=== PATIENT | male | born 1950 | race Caucasian/White ===

== ENCOUNTER → 2017-01-29 | Outpatient (CLI) | payer OTHER | LOC: FIMAGING 10:31 | PROVIDERS: ATTEND Specialist | DX: N20.0 Calculus of kidney (principal); R93.422 Abnormal radiologic findings on diagnostic imaging of left kidney ==

== ENCOUNTER 2017-04-01 07:43 | Day surgery (SDC) | payer OTHER ==
[2017-04-01] MEDS ORDERED: LIDOCAINE 1% 300 MG/30 ML SDV SC ONE (08:15)
--- NOTE | 2017-04-01 09:24 | SUROPNOTE ---
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 The first, second, and third left intercostal space were prepped. Lidocaine was used for local anesthetic. A skin incision was made and the provided blade was used for proper width. Minor bleeding was noted ( patient on coumadin). The delivery rail was used to insert the LINQ. No complications were noted. Three viola were used to close the incision. LINQ SN: [id number] Three viola for closure. A 4X4 and tegaderm was used to cover the incision. Patient did well and has follow up appointment in one week.
== END 2017-04-01 09:30 | disposition home or self-care (01) ==
LOC: FCATH 07:43
PROVIDERS: ATTEND Internal Medicine Cardiovascular Disease
PROC: 0JH60PZ Insertion of Cardiac Rhythm Related Device into Chest Subcutaneous Tissue and Fascia, Open Approach (ICD-10-PCS; principal; 2017-04-01)
DX: I10 Essential (primary) hypertension (principal); I63.9 Cerebral infarction, unspecified; Z79.01 Long term (current) use of anticoagulants
CPT/HCPCS: C1764

== ENCOUNTER → 2017-06-18 | Outpatient (CLI) | payer OTHER ==
--- NOTE | 2017-06-18 23:57 | CPR ---
[f rep st] NONINVASIVE CARDIAC PROCEDURE REPORT PROCEDURE: Exercise treadmill myocardial perfusion imaging study. SUPERVISING [employer] SOCIAL WORKER: Dr. Norah Steele. INDICATION FOR EXERCISE TREADMILL MYOCARDIAL PERFUSION IMAGING STUDY: Patient recently noted to have wide complex tachycardic arrhythmia. Evaluated for possible ischemia. PRE: After obtaining informed consent, the patient denies any chest pain or symptoms suggestive of i schemia, the patient was placed on electrocardiogram. Initial EKG showing sinus bradycardia, ventric ular rate at 55 beats per minute, nonspecific T-wave abnormalities noted in inferior lateral leads. The patient's initial blood pressure of 138/94, saturation 94% on room air. Patient denies of any ch est pain, shortness of breath, or symptoms suggestive of ischemia. EXERCISE STRESS: The patient was placed on treadmill, following standard William protocol with the js bailey findings: 1. Patient exercised for 8 minutes and 30 seconds. 2. 9.8 METS. 3. The patient attained a heart rate of 147 beats per minute, which was 97 MPHR. 4. The patient reporting no chest pain or symptoms of ischemia throughout testing. 5. Patient was noted to have [address] depression at peak exercise, equivocal for ischem ia. 6. Patient was noted to have rare PACs and rare PVCs during stress, no other malignant arrhythmias n oted. 7. SpO2 greater than 90% throughout testing. 8. BP variations: At rest 134/94, peak 190/80. 9. Test was stopped due to maximum effort. 10. Sharp treadmill score of -2, placing him at intermediate cardiovascular risk. RECOVERY: Patient recovered for 5 minutes post testing with ST segments returning back to baseline. He continued to report no chest pain or shortness of breath, no arrhythmias noted. Final blood pres sure after 5 minutes recovery was 160/70. IMPRESSION: A 67-year-old male who had recently seen Electrophysiology Services, noted to have wide, tachycardic, nonsustained rhythm, denying any chest pressure or pain, undergoing exercise treadmill myocardial perfusion imaging study for ischemia. The patient noted to have [address] dep ression in inferolateral leads, equivocal for ischemia, Sharp treadmill score of negative 2 for interm ittent cardiovascular risk. Patient is going to be further evaluated by [facility] imaging. Currently, he is pain-free, and is taken down to Nuclear Medicine for post-stress imaging. Results of the exercise treadmill stress test called to [facility]rophysiology Services. /[id number]/MODL
== END ==
LOC: FIMAGING 13:45
PROVIDERS: ATTEND Internal Medicine Cardiovascular Disease
PROC: C22G1ZZ Tomographic (Tomo) Nuclear Medicine Imaging of Myocardium using Technetium 99m (Tc-99m) (ICD-10-PCS; principal; 2017-06-18)
PROC: 4A12XM4 Monitoring of Cardiac Stress, External Approach (ICD-10-PCS; principal; 2017-06-18)
DX: I49.9 Cardiac arrhythmia, unspecified (principal)
CPT/HCPCS: 78452; 93017; A9500

== ENCOUNTER 2017-07-19 07:38 | Day surgery (SDC) | payer OTHER ==
[2017-07-19] MEDS ORDERED: DIAZEPAM 5 MG TAB PO ONE (07:40)
[2017-07-19] MEDS ORDERED: ASPIRIN EC 325 MG TAB PO ONE ×2 (07:40→08:07)
[2017-07-19] MEDS ORDERED: diphenhydrAMINE 25 MG CAP PO ONE ×2 (07:40→08:07)
[2017-07-19] MEDS ORDERED: NS 1,000 ML IV ONE (07:40)
[2017-07-19] MEDS ORDERED: FAMOTIDINE 20 MG TAB PO ONE (07:40)
[2017-07-19] MEDS ORDERED: FAMOTIDINE 20 MG TAB ONE (08:07)
[2017-07-19] MEDS ORDERED: DIAZEPAM 5 MG TAB ONE (08:07)
--- NOTE | 2017-07-19 08:07 | CPEKG ---
Heart Rate: 51 RR Interval: 1176 P-R Interval: 156 QRSD Interval: 98 QT Interval: 440 QTC Interval: 406 P Clinton: 62 QRS Clinton: 57 T Wave Clinton: 19 EKG Severity - NORMAL ECG - EKG Impression: SINUS RHYTHM Electronically Signed By: Austyn Sterling 19-Jul-2017 12:06:10
[2017-07-19 08:23] LABS: % IMMATURE GRANULYOCYTES 0.6 % (0.0-1.1); ABSOLUTE IMMATURE GRANULOCYTES 0.04 10^3/uL (0.00-0.10); ADD DIFF? NO; ADD MORPH? NO; ADD SCAN? NO; ATYPICAL LYMPHOCYTE FLAG 0 (0-99); FRAGMENT RBC FLAG 0 (0-99); HEMATOCRIT 44.7 % (40.0-51.0); HEMOGLOBIN 15.8 g/dL (13.7-17.5); LEFT SHIFT FLG 0 (0-99); LIPEMIA HEMOLYSIS FLAG 90 (0-99); MEAN CELL HEMOGLOBIN 31.2 pg (27.9-34.1); MEAN CELL HEMOGLOBIN CONCENTR. 35.3 g/dL (32.4-36.7); MEAN CELL VOLUME 88.3 fL (81.5-99.8); MEAN PLATELET VOLUME 10.1 fL (8.7-11.7); PLATELET CLUMPS FLAG 0 (0-99); PLATELET COUNT 195 10^3/uL (150-400); RED BLOOD CELL COUNT 5.06 10^6/uL (4.40-6.38); RED CELL DISTRIBUTION WIDTH 12.8 % (11.5-15.2)
[2017-07-19 08:31] LABS: INR 1.19 (0.83-1.16); PROTIME(PATIENT) 15.1 SEC (12.0-15.0)
[2017-07-19 08:39] LABS: ANION GAP 10 mEq/L (8-16); CALCIUM 9.4 mg/dL (8.5-10.4); CARBON DIOXIDE 28 mEq/l (22-31); CHLORIDE 102 mEq/L (97-110); CHOLESTEROL 110 mg/dL (140-220); CHOLESTEROL/HDL RATIO 2.75 RATIO (1.00-4.97); GLOMERULAR FILTRATION RATE > 60; GLUCOSE 105 mg/dL (70-100); HIGH DENSITY LIPOPROTEIN 40 mg/dL (40-65); LDL/HDL RATIO 1.45 RATIO (1.00-3.64); LOW DENSITY LIPOPROTEIN 58 mg/dL (80-100); MAGNESIUM 1.7 mg/dL (1.6-2.3); NON-HIGH DENSITY LIPOPROTEIN 70 mg/dL (90-129); POTASSIUM 3.9 mEq/L (3.5-5.2); SODIUM 140 mEq/L (134-144); TRIGLYCERIDE 64 mg/dL (40-150); VERY LOW DENSITY LIPOPROTEINS 12 mg/dL (8-25)
[2017-07-19] MEDS ORDERED: LIDOCAINE 1% 300 MG/30 ML SDV ONE (08:46)
[2017-07-19] MEDS ORDERED: MIDAZOLAM 2 MG/2 ML VIAL ONE (08:46)
[2017-07-19] MEDS ORDERED: fentaNYL 100 MCG/2 ML INJ ONE (08:46)
[2017-07-19] MEDS ORDERED: IOPAMIDOL (ISOVUE-370) 150 ML BTL IV ONE (08:47)
--- NOTE | 2017-07-19 09:19 | PDPROPOC ---
Sedation Plan of Care Sedation Plan of Care: vital signs stable, mental status noted, patient educated of risks, benefits, alternatives, patient can tolerate sedation ASA Classification: ASA 2 Planned drugs: fentanyl, midazolam Mallampati Score: Class 2 Mallampati Reference Image: Patient passed 3-3-2 rule?: Yes
--- NOTE | 2017-07-19 09:19 | PDHPUP ---
History & Physical Update H&P update statement: This history and physical update is based on an assessment of the patient which was completed after admission or registration (within 24 hours), but prior to the surgery/procedure. H&P update: H&P reviewed & patient examined, no change in patient's condition since H&P completed
[2017-07-19] MEDS ORDERED: NITROGLYCERIN 0.4 MG BTL SL PRN (10:21)
[2017-07-19] MEDS ORDERED: ACETAMINOPHEN/ASA/CAFFEINE 1 EACH TAB PO PRN (10:21)
[2017-07-19] MEDS ORDERED: ONDANSETRON 4 MG/2 ML VIAL IVP PRN (10:21)
[2017-07-19] MEDS ORDERED: HYDROCODONE/APAP 5/325 TAB PO PRN (10:21)
[2017-07-19] MEDS ORDERED: OXYCODONE/APAP 5/325 TAB PO PRN (10:21)
[2017-07-19] MEDS ORDERED: ATROPINE SULFATE 1 MG/10 ML SYR IVP PRN (10:21)
--- NOTE | 2017-07-19 15:28 | CPIP ---
[f rep st] INVASIVE CARDIAC PROCEDURE DATE OF PROCEDURE: 07/19/2017 PROCEDURE: 1. Coronary angiography. 2. Left ventriculography. INDICATION: 1. Wide-complex tachycardia with symptoms of chest pain and presyncope. 2. Intermediate risk stress test. ACCESS: The patient was prepped and draped in sterile fashion. 1% lidocaine was used to anesthetize the right inguinal region. A 6-Brazilian introducer sheath was placed selectively into the right commo n femoral artery via modified Seldinger technique. CORONARY ANGIOGRAPHY: A 6-Brazilian JL4 was advanced to the left main coronary artery and images obtain ed. The left main coronary artery bifurcated into an LAD and circumflex coronary arteries. The left main coronary artery had a proximal 20% stenosis present. The left anterior descending coronary art tuan gave rise to 2 diagonal branches. The left anterior descending coronary artery had mild diffuse disease in the proximal and mid segments. In the proximal segment, there was a discreet 40% stenosis present. The 2 diagonal arteries were free of any significant disease. The circumflex coronary art tuan is a large vessel, but was nondominant. Circumflex coronary artery gave rise to 1 prominent OM b ranch as well as 3 smaller OM branches. The circumflex coronary artery was diffusely diseased. In t he ostial segment, there is a discrete 30% stenosis present. In the mid segment, there is a discrete 20% to 30% stenosis, followed by aneurysmal dilation. A 6-Brazilian no-torque right catheter was advan paz to the right coronary artery and images obtained. The right coronary artery is dominant. The ri ght coronary artery had mild diffuse disease throughout. In the mid vessel, there is a discrete 20% stenosis present. LEFT VENTRICULOGRAPHY: A 6-Brazilian pigtail catheter was advanced in the left ventricle and images obt ained. Left ventricle is normal size and normal systolic function. Estimated ejection fraction was 60%. COMPLICATIONS: None. CONCLUSIONS: 1. Qgsg-ev-vhywyoph coronary artery disease without flow limitation. 2. Normal left ventricular size and systolic function. 3. Plan is for medical management. /[id number]/MODL
[2017-07-19] MEDS ORDERED: WARFARIN SODIUM 2.5 MG TAB PO SCH (17:00)
[2017-07-19] MEDS ORDERED: ATORVASTATIN CALCIUM 10 MG TAB PO SCH (18:00)
[2017-07-19] MEDS ORDERED: DOXAZOSIN MESYLATE 1 MG TAB PO SCH (21:00)
[2017-07-19] MEDS ORDERED: ASPIRIN 81 MG CHEWABLE TAB PO SCH (21:00)
[2017-07-19] MEDS ORDERED: LISINOPRIL 10 MG TAB PO SCH (21:00)
[2017-07-19] MEDS ORDERED: METOPROLOL SUCCINATE XR 25 MG TAB PO SCH (21:00)
[2017-07-20] MEDS ORDERED: WARFARIN SODIUM 5 MG TAB PO SCH (17:00)
== END 2017-07-19 12:45 | disposition home or self-care (01) ==
LOC: FCATH 07:38
PROVIDERS: ATTEND Internal Medicine Cardiovascular Disease
DX: I25.10 Atherosclerotic heart disease of native coronary artery without angina pectoris (principal); R94.39 Abnormal result of other cardiovascular function study; R07.9 Chest pain, unspecified; I47.1 Supraventricular tachycardia; Z86.73 Personal history of transient ischemic attack (TIA), and cerebral infarction without residual deficits; Z86.718 Personal history of other venous thrombosis and embolism; E78.5 Hyperlipidemia, unspecified
CPT/HCPCS: C1760; J1644; J2250; J3010; Q9967

== ENCOUNTER → 2018-01-15 | Outpatient (CLI) | payer OTHER | LOC: FIMAGING 12:00 | PROVIDERS: ATTEND Specialist | DX: N20.0 Calculus of kidney (principal) ==

== ENCOUNTER → 2019-01-12 | Outpatient (CLI) | payer OTHER | LOC: FIMAGING 11:34 | PROVIDERS: ATTEND Specialist | DX: N20.0 Calculus of kidney (principal); Z90.49 Acquired absence of other specified parts of digestive tract ==

== ENCOUNTER 2019-01-21 12:37 | Inpatient (IN) | payer OTHER ==
[2019-01-21 14:13] LABS: PLATELET COUNT 222 10^3/uL (150-400)
--- NOTE | 2019-01-21 14:14 | PDCARPN ---
Cardiology Progress Note Chief Complaint: Paroxysmal A Fib Assessment/Plan: Assessment: PAF--He is followed closely by Dr Sterling in Clinic. He has been on multiple rate control medications with poor management of his A Fib. Most recently Metoprolol [address] Sterling would like to try Sotalol 80 mg BID. He will get EKG 2 hours after each dose. He feels good today. Plan: Sotalol load for PAF per Dr Sterling. Will start with 80 mg BID. EKG 2 hours post dose. 01/21/19 14:10 Objective: Vital Signs (8 Hrs) Temp Pulse Resp BP Pulse Ox 01/21/19 13:08 36.7 C 60 18 120/66 98 Result Diagrams: 01/21/19 14:00 01/21/19 14:00 ICD10 Worksheet Patient Problems: Problems Problem Status Onset Paroxysmal atrial fibrillation Acute
[2019-01-21 14:44] LABS: INR 1.31 (0.83-1.16); PROTIME(PATIENT) 15.7 SEC (12.0-15.0)
[2019-01-21] MEDS ORDERED: PROTOCOL POTASSIUM 1 DOSE MISC PRN (14:53)
[2019-01-21] MEDS ORDERED: PROTOCOL MAGNESIUM 1 DOSE IV PRN (14:53)
[2019-01-21] MEDS ORDERED: MAGNESIUM SULF 2 GM/WATER 50 ML IV ONE (14:57)
--- NOTE | 2019-01-21 15:01 | PDMN ---
Medical Necessity Medical necessity: MCG M505 afib A-1 day INPT for sotalol loading
[2019-01-21] MEDS ORDERED: SOTALOL HCL 80 MG TAB PO ONE (21:00)
[2019-01-21] MEDS: APIXABAN 5 MG TAB PO SCH (21:02)
[2019-01-21] MEDS: ASPIRIN 81 MG CHEWABLE TAB PO SCH (21:02)
[2019-01-21] MEDS: ATORVASTATIN CALCIUM 10 MG TAB PO SCH (21:03)
[2019-01-21] MEDS: DOXAZOSIN MESYLATE 1 MG TAB PO SCH (21:19)
[2019-01-22] MEDS ORDERED: POTASSIUM CL 10 MEQ TAB PO ONE (01:21)
[2019-01-22 04:58] LABS: INR 1.32 (0.83-1.16); PROTIME(PATIENT) 15.8 SEC (12.0-15.0)
--- NOTE | 2019-01-22 08:55 | ASMTCMCOM ---
CM Note CM Note Notes: Chart reviewed for discharge planning purposes. 68 year old male with afib admitted for sotolol loading for afib. CM to follow for needs. Likely independent at discharge. Plan: TBD Date Signed: 01/22/2019 08:54 AM Electronically Signed By:Jenny Vigil RN
[2019-01-22] MEDS: SOTALOL HCL 80 MG TAB PO SCH ×2 (09:13→21:06)
[2019-01-22] MEDS: APIXABAN 5 MG TAB PO SCH ×2 (09:13→21:04)
[2019-01-22] MEDS: amLODIPine BESYLATE 5 MG TAB PO SCH (09:14)
--- NOTE | 2019-01-22 18:29 | PDCARPN ---
Cardiology Progress Note Assessment/Plan: Assessment: PAF--He is followed closely by Dr Sterling in Clinic. He has been on multiple rate control medications with poor management of his A Fib. Most recently Metoprolol [address] Sterling would like to try Sotalol 80 mg BID. He will get EKG 2 hours after each dose. He feels good today. Plan: Sotalol load for PAF per Dr Sterling. Will start with 80 mg BID. EKG 2 hours post dose. 01/21/19 14:10 01/22/19 18:26 Tolerating Sotolol well with minimal HR decline. BP stable Likely home tomorrow. Subjective: I feel good. No dizziness or lightheadedness. Reviewed/Discussed With: multidisciplinary team Objective: Vital Signs (8 Hrs) Temp Pulse Resp BP Pulse Ox 01/22/19 16:12 36.5 C 73 20 166/75 H 96 01/22/19 16:07 36.7 C 45 L 13 115/68 97 01/22/19 11:31 36.7 C 51 L 14 136/72 H 96 Intake/Output (24 Hrs) 01/21/19 01/22/19 01/23/19 05:59 05:59 05:59 Intake Total 960 Output Total 250 Balance 960 -250 Intake: Oral (ml) 960 Output: Urine (ml) 250 Toilet 50 Urinal 200 Other: Weight 80.3 kg Intake Quantity Yes Yes Sufficient Number of Voids Toilet 3 Number of Stools Toilet 1 Result Diagrams: 01/21/19 14:00 01/22/19 03:14 - Physical Exam Constitutional: no apparent distress Cardiovascular: regular rate and rhythm, no murmurs, no rubs, no gallops Respiratory: clear to auscultate bilat, no crackles, no wheezes Skin: warm, no edema Neurologic: AAOx3 Psychiatric: cooperative, interactive ICD10 Worksheet Patient Problems: Problems Problem Status Onset Paroxysmal atrial fibrillation Acute
[2019-01-22] MEDS: ATORVASTATIN CALCIUM 10 MG TAB PO SCH (21:05)
[2019-01-22] MEDS: ASPIRIN 81 MG CHEWABLE TAB PO SCH (21:05)
[2019-01-22] MEDS: DOXAZOSIN MESYLATE 1 MG TAB PO SCH (21:05)
[2019-01-22] MEDS ORDERED: LISINOPRIL 40 MG TAB PO SCH (22:15)
[2019-01-23] MEDS: amLODIPine BESYLATE 5 MG TAB PO SCH (08:43)
[2019-01-23] MEDS: SOTALOL HCL 80 MG TAB PO SCH (08:43)
[2019-01-23] MEDS: APIXABAN 5 MG TAB PO SCH (08:43)
[2019-01-23] MEDS ORDERED: MAGNESIUM SULF 1 GM/DEXTROSE 100 ML IV ONE (10:18)
[2019-01-23 11:27] VITALS: BP 128/64
--- NOTE | 2019-01-23 15:42 | ASMTLACE ---
LACE Length of stay for Answers: 2 days current admission Acuity / Level of Answers: Yes Care: Did the patient have an inpatient admission? Comorbidities - select Answers: Cerebrovascular disease all that apply (CVA, TIA, aneurysms, vasc ular dementia) Other Notes: AFib # of Emergency department Answers: 0 visits in the last 6 months Score: 7 Date Signed: 01/23/2019 03:41 PM Electronically Signed By:Jenny Vigil RN
--- NOTE | 2019-01-23 15:44 | ASMTLACE ---
LACE Length of stay for Answers: 2 days current admission Comorbidities - select Answers: Other Notes: afib all that apply Score: 3 Date Signed: 01/23/2019 03:43 PM Electronically Signed By:Jenny Vigil RN
--- NOTE | 2019-01-27 13:20 | GDS ---
[f rep st] DISCHARGE SUMMARY DIAGNOSES: 1. Paroxysmal atrial fibrillation. 2. Sotalol load. COURSE OF HOSPITALIZATION: The patient was admitted to the hospital for sotalol loading due to parox ysmal atrial fibrillation, which has been difficult to manage. He has been followed closely by Dr. Allyson Sterling who recommended admission to the hospital for sotalol loading. He was started on sotalol 40 mg 1st dose due to his resting heart rate at 42. He tolerated the sotalol 40 very well with littl e change in his heart rate. He then was increased to sotalol 80 mg b.i.d., which he tolerated well. On January 22, his QTc per EKG was 427, with a heart rate of 49. He had been up walking and ambulating with no adverse effects. After his final dose of sotalol 80 on 01/23/2019, he felt a sudden decline in stamina and was lightheaded. His heart rate was [address] Austyn Sterling recom mended that Dr. Rafat Turner review his EKGs and make recommendations for further management of his p aroxysmal atrial fibrillation. Dr. Rafat Turner evaluated the EKGs and made the recommendation to stop sotalol completely. He did n ot recommend that he start any other antiarrhythmic medication at this time. The patient does remain on his Eliquis for anticoagulation and will continue this. The patient is to return to the clinic t o be evaluated further by Dr. Rafat Turner on January 27, 2019, at 2 p.m. At that time, he will determin e other possible medical management and other possible options for management of his paroxysmal atria l fibrillation. At this time, he currently is stable for discharge. He has no further lightheadedness. Further recommendations will may be made at his appointment with Dr. Turner on January 27 9. At this time, he currently is stable for discharge. /[id number]/MODL
== END 2019-01-23 15:40 | disposition home or self-care (01) | DRG 310 ==
LOC: F2W 12:39
PROVIDERS: ADMIT Internal Medicine Cardiovascular Disease; ATTEND Internal Medicine Cardiovascular Disease
DX: I48.0 Paroxysmal atrial fibrillation (principal); I10 Essential (primary) hypertension; E78.00 Pure hypercholesterolemia, unspecified; N40.0 Benign prostatic hyperplasia without lower urinary tract symptoms; I25.10 Atherosclerotic heart disease of native coronary artery without angina pectoris; Z79.01 Long term (current) use of anticoagulants; Z86.73 Personal history of transient ischemic attack (TIA), and cerebral infarction without residual deficits; Z86.718 Personal history of other venous thrombosis and embolism
CPT/HCPCS: J3475